=== PATIENT | female | born 1935 | race Caucasian/White ===

== ENCOUNTER 2017-04-29 05:37 | Day surgery (SDC) | payer OTHER ==
[~2017-04-29] VITALS: Ht 154.9 cm; Wt 90.7 kg
[~2017-04-29 05:37] MED LIST: ADULT LOW DOSE81 M1 PO; ALDACTONE25 MG PO; ASCORBIC ACID500 M3 PO; ASPIRIN EC325 MG PO; Aldactone PO; Ascorbic Acid,Ester- PO; Ativan PO; CALCIUM600 MG PO; COLACE100 MG PO; COLCRYS0.6 MG PO; COUMADIN; COZAAR100 MG PO; COZAAR50 MG PO; Calcium Carbonate,Ca PO; Colace PO; Colchicine,Colcrys PO; Cozaar PO; DIOVAN160 MG PO; DITROPAN XL5 MG PO; DITROPAN5 MG PO; Ditropan PO; Dulera 100 mcg/5 mcg IH; Ecotrin PO; FUROSEMIDE40 MG PO; Feosol PO; Flaxseed Oil PO; INDERAL LA120 MG PO; Inderal LA PO; LASIX40 MG PO; LO-DOSE ASPIRIN81 M2 PO; MELOXICAM7.5 MG PO; METOPROLOL SUCC25 MG PO; MULTIVITAMIN1 EAC1 PO; Metoprolol Succinate PO; Multivitamins PO; OMEGA-3 FLAXS1000 MG PO; PEPCID20 MG PO; PERCOCET 5/31 TABLET PO; PRESERVISIO1 CAPSULE PO; PRESERVISION A1 EACH PO; PROCARDIA XL60 MG PO; PROPRANOLOL HCL60 M1 PO; PROTONIX40 MG PO; PreserVision Softgel PO; PriLOSEC PO; Procardia XL,Adalat PO; Propranolol HCl PO; Protonix PO; SELENIMIN200 MCG PO; SELENIUM200 MC3 PO; SENOKOT S,PE1 TABLET PO; SIMVASTATIN20 M1 PO; Selenium PO; THERAGRAN1 TABLET PO; Theragran PO; Toprol XL PO; ULTRAM50 MG PO; Ultram PO; VESICARE5 MG PO; VITAMIN C1000 MG PO; Vicodin,Lortab 5/500 PO; Vicodin,Norco 5/325 PO; Xanax PO; ZOCOR40 MG PO; ZYLOPRIM100 MG PO; Zocor PO; Zyloprim PO
[2017-04-29 06:20] VITALS: BP 158/74
[2017-04-29 13:53] VITALS: BP 141/80
[2017-04-29 17:08] VITALS: BP 134/74
[2017-04-29 19:50] VITALS: BP 131/63
[2017-04-30 00:43] VITALS: BP 116/56
[2017-04-30 04:17] VITALS: BP 105/51
[2017-04-30 07:29] LABS: HEMATOCRIT 36.1 % (36.0-46.0); MCH 31.4 PG (29.0-34.0); MCV 95.3 FL (83-99); PLATELET COUNT 165 K/uL (156-360); RBC DIS.WIDTH-SD 45.6 % (39-53); RED BLOOD COUNT 3.79 M/uL (3.80-5.20); WHITE BLOOD COUNT 10.4 K/uL (4.1-10.2)
[2017-04-30 07:41] LABS: HEMOGLOBIN 11.9 G/DL (11.9-15.5)
[2017-04-30 07:45] VITALS: BP 108/57
[2017-04-30 12:00] VITALS: BP 116/58
[2017-04-30] MEDS ORDERED: DILAUDID2 MG PO (12:23)
== END 2017-04-30 14:25 | disposition home or self-care (01) ==
LOC: SDC 05:37 → NUC 07:00 → SDC 07:00 → ENRESERV 11:58 → 2EASTP 12:34 → 2SOUTH 12:34 → 2EASTP 13:46 → CANRESERV 14:24 → ENRESERV 14:24 → EDPENDDISDT 04-30 14:00 → ENPENDDIS 04-30 14:00 → EDPENDDISTM 04-30 14:00 → 2EASTP 04-30 14:25
PROVIDERS: Surgery
DX: C50.511 Malignant neoplasm of lower-outer quadrant of right female breast (principal); Z17.0 Estrogen receptor positive status [ER+]; K21.0 Gastro-esophageal reflux disease with esophagitis; I12.9 Hypertensive chronic kidney disease with stage 1 through stage 4 chronic kidney disease, or unspecified chronic kidney disease; N18.4 Chronic kidney disease, stage 4 (severe); E78.2 Mixed hyperlipidemia; Z85.53 Personal history of malignant neoplasm of renal pelvis; Z90.5 Acquired absence of kidney
CPT/HCPCS: 78195; 78999; 85027; 88305; 88309; 88331; A9541; G0378; J0690; J1100; J1170; J2270; J2405; J2710; J3010; J3480; S0020